=== PATIENT | male | born 1950 | race Caucasian/White ===

== ENCOUNTER 2024-05-24 14:40 | Inpatient (IN) | payer MEDICARE ==
[~2024-05-24] VITALS: Ht 190.5 cm; Wt 40.4 kg
[2024-05-24] MEDS ORDERED: LORazepam 2 MG TABLET PO PRN (17:30)
[2024-05-24] MEDS ORDERED: OLANZapine 5 MG RAPDIS TABLET PO PRN (17:30)
[2024-05-24 21:35] VITALS: BP 134/71; PULSE 74; RESP 18; TEMP 97.8; O2SAT 96
[2024-05-24] MEDS ORDERED: GuaiFENesin/D-METHORPHAN [SUGAR-FREE] 200-20MG/10 ML SYRUP UDCUP PO PRN (21:45)
[2024-05-24] MEDS ORDERED: MAG HYDROX/ALUMINUM HYD/SIMETH ES 30 ML SUSPENSION UDCUP PO PRN (21:45)
[2024-05-24] MEDS ORDERED: MAGNESIUM HYDROXIDE SUSPENSION 30 ML UDCUP PO PRN (21:45)
[2024-05-24] MEDS ORDERED: LOPERAMIDE HCL 2 MG CAPSULE PO PRN (21:45)
[2024-05-24] MEDS ORDERED: HydrOXYzine PAMOATE 50 MG CAPSULE PO PRN (21:45)
[2024-05-24] MEDS ORDERED: ACETAMINOPHEN 325 MG TABLET PO PRN (21:45)
[2024-05-24] MEDS ORDERED: PROMETHAZINE HCL 25 MG TABLET PO PRN (21:45)
[2024-05-25 07:24] LABS: CHOL/HDL RATIO 4.4 (4.2-7.3)
[2024-05-25 07:27] LABS: HEMOGLOBIN A1C 5.5 % (3.8-5.6)
[2024-05-25] MEDS: THIAMINE 100 MG TABLET PO SCH (08:47)
[2024-05-25] MEDS: MULTIVITAMINS WITH MINERALS, THERAPEUTIC TABLET PO SCH (08:47)
[2024-05-25] MEDS: OMEGA-3/DHA/EPA/FISH OIL 1,000 MG CAPSULE PO SCH (08:47)
[2024-05-25] MEDS: CEPHALEXIN MONOHYDRATE 500 MG CAPSULE PO SCH (08:48)
[2024-05-25] MEDS: FOLIC ACID 1 MG TABLET PO SCH (08:48)
[2024-05-25] MEDS: AZITHROMYCIN 500 MG TABLET PO SCH (09:10)
[2024-05-25] MEDS ORDERED: MAG HYDROX/ALUMINUM HYD/SIMETH ES 30 ML SUSPENSION UDCUP PO PRN (10:00)
[2024-05-25] MEDS ORDERED: LOPERAMIDE HCL 2 MG CAPSULE PO PRN (10:00)
[2024-05-25] MEDS ORDERED: CloNIDine HCL 0.1 MG TABLET PO PRN (10:00)
[2024-05-25] MEDS ORDERED: PETROLATUM,WHITE 28 GM JELLY TP PRN (10:00)
[2024-05-25] MEDS ORDERED: DOCUSATE SODIUM 100 MG CAPSULE PO PRN (10:00)
[2024-05-25] MEDS ORDERED: ACETAMINOPHEN 325 MG TABLET PO PRN (10:00)
[2024-05-25] MEDS ORDERED: GuaiFENesin/D-METHORPHAN [SUGAR-FREE] 200-20MG/10 ML SYRUP UDCUP PO PRN (10:00)
[2024-05-25] MEDS ORDERED: MAGNESIUM HYDROXIDE SUSPENSION 30 ML UDCUP PO PRN (10:00)
[2024-05-25] MEDS ORDERED: ALBUTEROL SULFATE HFA 90 MCG/PUFF 8 GM INHALER IH PRN (10:00)
[2024-05-25] MEDS ORDERED: IBUPROFEN 400 MG TABLET PO PRN (10:00)
[2024-05-25] MEDS ORDERED: NICOTINE 14 MG/24 HOUR PATCH TD PRN (10:00)
[2024-05-25] MEDS ORDERED: ONDANSETRON 4 MG TABLET PO PRN (10:00)
[2024-05-25 16:26] VITALS: BP 115/65; PULSE 63; RESP 17; TEMP 97.1; O2SAT 96
[2024-05-25 20:02] VITALS: BP 99/68; PULSE 68; RESP 18; TEMP 98.1; O2SAT 96
[2024-05-25 20:09] VITALS: BP 99/65; PULSE 68; RESP 18; TEMP 98.1
[2024-05-25] MEDS: MELATONIN 5 MG TABLET PO SCH (20:53)
[2024-05-25] MEDS: BREXPIPRAZOLE 0.25 MG TABLET PO SCH (20:53)
[2024-05-26 07:21] LABS: HEMOGLOBIN A1C 5.6 % (3.8-5.6)
[2024-05-26 07:40] LABS: CHOL/HDL RATIO 4.6 (4.2-7.3); THYROID STIMULATING HORMONE 4.64 uIU/mL (0.36-3.74)
[2024-05-26 08:22] VITALS: BP 121/78; PULSE 92; RESP 18; TEMP 97.1; O2SAT 96
[2024-05-26 20:08] VITALS: BP 109/63; PULSE 62; RESP 18; TEMP 98; O2SAT 95
[2024-05-27 08:04] VITALS: BP 110/75; PULSE 80; RESP 16; TEMP 97.9; O2SAT 98
[2024-05-27 20:00] VITALS: BP 125/82; PULSE 75; RESP 19; TEMP 98.1; O2SAT 99
[2024-05-28 09:56] VITALS: BP 129/70; PULSE 66; RESP 18; TEMP 97.3; O2SAT 97
[2024-05-28 20:25] VITALS: BP 138/65; PULSE 70; RESP 19; TEMP 97.6; O2SAT 96
[2024-05-29 09:17] VITALS: BP 111/62; PULSE 81; RESP 18; TEMP 97.4; O2SAT 95
[2024-05-29] MEDS: MODAFINIL 100 MG TABLET PO SCH (09:33)
[2024-05-29 20:01] VITALS: BP 104/58; PULSE 70; RESP 17; TEMP 98.1; O2SAT 98
[2024-05-30 09:05] VITALS: BP 104/74; PULSE 70; RESP 18; TEMP 97.6; O2SAT 97
[2024-05-30 20:17] VITALS: BP 115/76; PULSE 65; RESP 18; TEMP 98.1; O2SAT 96
[2024-05-31 10:04] VITALS: BP 107/57; PULSE 78; RESP 18; TEMP 98; O2SAT 97
[2024-05-31 19:58] VITALS: BP 118/52; PULSE 18; RESP 19; TEMP 98; O2SAT 97
[2024-05-31 21:01] VITALS: BP 118/52; PULSE 18; RESP 18; TEMP 98; O2SAT 97
[2024-06-01 08:43] VITALS: BP 120/70; PULSE 17; RESP 17; TEMP 97.2; O2SAT 97
[2024-06-01] MEDS: MODAFINIL 100 MG TABLET PO SCH (10:08)
[2024-06-01 21:07] VITALS: BP 122/69; PULSE 65; RESP 18; TEMP 98.1; O2SAT 100
[2024-06-02 09:11] VITALS: BP 111/63; PULSE 60; RESP 16; TEMP 97.3; O2SAT 95
[2024-06-02] MEDS: TUBERCULIN, PURIFIED PROTEIN DERIVATIVE 5 TU/0.1 ML SYRINGE ID ONE (14:24)
[2024-06-02 20:18] VITALS: BP 146/66; PULSE 55; RESP 18; TEMP 97.6; O2SAT 96
[2024-06-03 08:20] VITALS: BP 124/75; PULSE 77; RESP 18; TEMP 97.5; O2SAT 95
[2024-06-03 20:36] VITALS: BP 103/60; PULSE 60; RESP 18; TEMP 98.5; O2SAT 98
[2024-06-04 08:54] VITALS: BP 129/67; PULSE 61; RESP 18; TEMP 97.5; O2SAT 97
[2024-06-04 20:15] VITALS: BP 110/66; PULSE 85; RESP 16; TEMP 98.1; O2SAT 97
[2024-06-05 08:48] VITALS: BP 126/76; PULSE 67; RESP 18; TEMP 97; O2SAT 96
[2024-06-05 20:02] VITALS: BP 109/75; PULSE 61; RESP 18; TEMP 98.2; O2SAT 100
[2024-06-06 08:26] VITALS: BP 129/65; PULSE 68; RESP 18; TEMP 97.8; O2SAT 97
[2024-06-06 20:18] VITALS: BP 154/75; PULSE 88; RESP 17; TEMP 97.4; O2SAT 98
[2024-06-07 09:00] VITALS: BP 122/62; PULSE 63; RESP 18; TEMP 98.2; O2SAT 97
[2024-06-07 22:46] VITALS: BP 118/84; PULSE 65; RESP 16; TEMP 98; O2SAT 98
[2024-06-08 08:28] VITALS: BP 110/81; PULSE 59; RESP 18; TEMP 97.1; O2SAT 98
[2024-06-08] MEDS: MODAFINIL 100 MG TABLET PO SCH (09:10)
[2024-06-08 20:52] VITALS: BP 118/68; PULSE 68; RESP 16; TEMP 97.7; O2SAT 95
[2024-06-09 10:31] VITALS: BP 122/86; PULSE 58; RESP 17; TEMP 97.3; O2SAT 98
[2024-06-09 20:28] VITALS: BP 100/59; PULSE 61; RESP 19; TEMP 98.3; O2SAT 98
[2024-06-10 08:18] LABS: ANION GAP 6 mmol/L (8-16); CALCIUM, TOTAL 8.6 mg/dL (8.8-10.5); CARBON DIOXIDE 26 mmol/L (22-29); CHLORIDE 103 mmol/L (98-107); CREATININE 1.04 mg/dL (0.60-1.30); GLOMERULAR FILTR. RATE CALC > 60 mL/min (>60); GLUCOSE,RANDOM 88 mg/dL (70-110); SODIUM SERUM 135 mmol/L (136-145); UREA NITROGEN, BLOOD 18 mg/dL (7-18)
[2024-06-10 09:00] VITALS: BP 119/71; PULSE 64; RESP 18; TEMP 97; O2SAT 98
[2024-06-10 22:35] VITALS: BP 103/74; PULSE 57; RESP 18; TEMP 98; O2SAT 98
[2024-06-11 10:43] VITALS: BP 121/83; PULSE 57; RESP 17; TEMP 96.9; O2SAT 99
[2024-06-11 21:48] VITALS: BP 139/52; PULSE 69; RESP 18; TEMP 98; O2SAT 99
[2024-06-12 08:29] VITALS: BP 153/64; PULSE 64; RESP 18; TEMP 97.7; O2SAT 98
[2024-06-12 20:23] VITALS: BP 138/74; PULSE 104; RESP 18; TEMP 97.4; O2SAT 99
[2024-06-13 09:38] VITALS: BP 147/97; PULSE 62; RESP 18; TEMP 97.2; O2SAT 97
[2024-06-13 20:00] VITALS: BP 109/57; PULSE 57; RESP 19; TEMP 97.1; O2SAT 97
[2024-06-14 09:18] VITALS: BP 144/80; PULSE 61; RESP 18; TEMP 97.8; O2SAT 98
[2024-06-14 20:00] VITALS: BP 106/70; PULSE 61; RESP 19; TEMP 97.5; O2SAT 97
[2024-06-14] MEDS: BREXPIPRAZOLE 0.25 MG TABLET PO SCH (20:06)
[2024-06-15 08:41] VITALS: BP 129/75; PULSE 65; RESP 18; TEMP 97.1; O2SAT 98
[2024-06-15 20:19] VITALS: BP 122/68; PULSE 68; RESP 18; TEMP 98.1; O2SAT 98
[2024-06-16 13:05] VITALS: BP 93/47; PULSE 68; RESP 18; TEMP 97.1; O2SAT 97
[2024-06-16 20:17] VITALS: BP 116/76; PULSE 71; RESP 18; TEMP 98.1; O2SAT 97
[2024-06-17 10:08] VITALS: BP 124/61; PULSE 62; RESP 18; O2SAT 98
[2024-06-17 20:30] VITALS: BP 155/72; PULSE 71; RESP 18; TEMP 98; O2SAT 98
[2024-06-18 09:10] VITALS: BP 116/84; PULSE 60; RESP 18; TEMP 97; O2SAT 96
[2024-06-18 20:44] VITALS: BP 112/69; PULSE 67; RESP 18; TEMP 97.7; O2SAT 96
[2024-06-19 08:00] VITALS: BP 117/66; PULSE 61; RESP 18; TEMP 96.8; O2SAT 97
[2024-06-19 20:08] VITALS: BP 115/76; PULSE 76; RESP 18; TEMP 97.9; O2SAT 97
[2024-06-20 08:30] VITALS: BP 129/77; PULSE 77; RESP 17; TEMP 97.8; O2SAT 95
[2024-06-20 21:35] VITALS: BP 106/65; PULSE 64; RESP 18; TEMP 97.5; O2SAT 96
[2024-06-20 21:37] VITALS: BP 106/65; PULSE 64; RESP 18; TEMP 97.5
[2024-06-21 09:00] VITALS: BP 120/84; PULSE 61; RESP 17; TEMP 98; O2SAT 96
[2024-06-21 20:10] VITALS: BP 102/51; PULSE 61; RESP 18; TEMP 97.8; O2SAT 99
[2024-06-22 08:51] VITALS: BP 138/95; PULSE 82; RESP 17; TEMP 97.9; O2SAT 97
[2024-06-22 20:45] VITALS: BP 129/84; PULSE 71; RESP 18; TEMP 97.8; O2SAT 95
[2024-06-23 08:53] VITALS: BP 139/83; PULSE 70; RESP 18; TEMP 97.9; O2SAT 96
[2024-06-23 12:15] LABS: GLUCOMETER DEV NAME(LOC) 3EX.2; GLUCOSE,POINT OF CARE 373 MG/DL (70-110)
[2024-06-23 22:48] VITALS: BP 132/80; PULSE 76; RESP 18; TEMP 97.9; O2SAT 96
[2024-06-24 09:42] VITALS: BP 104/59; PULSE 57; RESP 18; TEMP 97.6; O2SAT 95
[2024-06-24 20:23] VITALS: BP 116/69; PULSE 68; RESP 17; TEMP 97.9; O2SAT 97
[2024-06-25 09:53] VITALS: BP 109/69; PULSE 67; RESP 18; TEMP 98.3; O2SAT 95
[2024-06-25 20:41] VITALS: RESP 18
[2024-06-26 08:00] VITALS: BP 142/87; PULSE 86; RESP 18; TEMP 97; O2SAT 97
[2024-06-26 20:44] VITALS: BP 106/61; PULSE 64; RESP 18; TEMP 97.5; O2SAT 97
[2024-06-27 08:00] LABS: BASOPHILS % (AUTO) 1.3 % (0.0-2.0); EOSINOPHILS % (AUTO) 5.6 % (1.0-6.0); HEMOGLOBIN 14.6 g/dL (13.5-17.5); LYMPHOCYTES # (AUTO) 1.5 K/uL (1.0-4.8); LYMPHOCYTES % (AUTO) 34.7 % (22.0-44.0); MEAN CORPUSCULAR HEMOGLOBIN 31.5 pg (26.0-34.0); MEAN CORPUSCULAR HGB CONC 34.6 G/dL (31.0-37.0); MEAN CORPUSCULAR VOLUME 91 fL (80-100); MONOCYTES # (AUTO) 0.5 K/uL (0.1-1.0); MONOCYTES % (AUTO) 10.9 % (2.0-9.0); NEUTROPHILS # (AUTO) 2.1 K/uL (1.8-7.7); NEUTROPHILS % (AUTO) 47.5 % (40.0-70.0); PLATELET COUNT (AUTO) 194 K/uL (150-450); RED BLOOD CELL COUNT(AUTO) 4.62 MIL/uL (4.50-5.90); WHITE BLOOD COUNT (AUTO) 4.4 K/uL (4.5-11.0)
[2024-06-27 08:02] LABS: ANION GAP 7 mmol/L (8-16); CALCIUM, TOTAL 8.3 mg/dL (8.8-10.5); CARBON DIOXIDE 26 mmol/L (22-29); CHLORIDE 103 mmol/L (98-107); CREATININE 1.02 mg/dL (0.60-1.30); GLOMERULAR FILTR. RATE CALC > 60 mL/min (>60); GLUCOSE,RANDOM 92 mg/dL (70-110); SODIUM SERUM 136 mmol/L (136-145); UREA NITROGEN, BLOOD 22 mg/dL (7-18)
[2024-06-27 08:45] VITALS: BP 130/89; PULSE 60; RESP 18; TEMP 97.3; O2SAT 94
[2024-06-27] MEDS: MODAFINIL 100 MG TABLET PO SCH (08:59)
[2024-06-27] MEDS ORDERED: OMEG100033 PO (11:38)
[2024-06-27] MEDS ORDERED: MODA100T65 PO (11:38)
[2024-06-27] MEDS ORDERED: BREX0.25 PO (11:38)
[2024-06-27] MEDS ORDERED: MELA5TAB40 PO (11:38)
[2024-06-27 20:33] VITALS: BP 107/62; PULSE 67; RESP 18; TEMP 98.1; O2SAT 98
[2024-06-28 08:30] VITALS: BP 126/89; PULSE 72; RESP 18; TEMP 97.3; O2SAT 98
[2024-06-28 22:10] VITALS: BP 118/72; PULSE 64; RESP 18; TEMP 98; O2SAT 96
[2024-06-29 08:35] VITALS: BP 122/53; PULSE 61; RESP 18; TEMP 97.5; O2SAT 98
[2024-06-29 21:20] VITALS: BP 129/88; PULSE 69; RESP 18; TEMP 97.5
[2024-06-30 08:56] VITALS: BP 132/72; PULSE 62; RESP 16; TEMP 97.8; O2SAT 97
[2024-06-30 21:09] VITALS: BP 131/71; PULSE 66; RESP 18; TEMP 97.7; O2SAT 96
[2024-07-01 09:14] VITALS: BP 120/63; PULSE 77; RESP 16; TEMP 97; O2SAT 97
[2024-07-01 20:31] VITALS: BP 115/66; PULSE 66; RESP 18; TEMP 97.9; O2SAT 99
[2024-07-02 11:20] VITALS: BP 125/52; PULSE 70; RESP 18; TEMP 97.1; O2SAT 98
== END 2024-07-02 14:44 | disposition home or self-care (01) | DRG 885 ==
LOC: 3EI 20:41
PROVIDERS: ADMIT Psychiatry & Neurology Psychiatry; ATTEND Psychiatry & Neurology Psychiatry
PROC: GZHZZZZ Group Psychotherapy (ICD-10-PCS; principal; 2024-05-24)
PROC: GZ58ZZZ Individual Psychotherapy, Cognitive-Behavioral (ICD-10-PCS; 2024-05-24)
PROC: GZ56ZZZ Individual Psychotherapy, Supportive (ICD-10-PCS; 2024-05-24)
DX: F25.0 Schizoaffective disorder, bipolar type (principal); N17.0 Acute kidney failure with tubular necrosis; A41.9 Sepsis, unspecified organism; G93.41 Metabolic encephalopathy; J18.9 Pneumonia, unspecified organism; F09 Unspecified mental disorder due to known physiological condition; R41.89 Other symptoms and signs involving cognitive functions and awareness; F41.9 Anxiety disorder, unspecified; Z59.82 Transportation insecurity; Z79.899 Other long term (current) drug therapy
CPT/HCPCS: 80048; 80061; 82962; 83036; 84443; 85025; 87081